=== PATIENT | female | born 1975 | race Caucasian/White ===

== ENCOUNTER 2021-10-16 04:48 | Inpatient (IN) | payer MEDICAID ==
[2021-10-16] VITALS (15 sets, daily range): BP systolic 122–168; BP diastolic 96–139; PULSE 84–102; TEMP 97.5–98
[~2021-10-16] VITALS: Ht 165.1 cm; Wt 62.7 kg
--- NOTE | 2021-10-16 07:10 | NUR ---
PT FROM [facility], ADMITTED TO ROOM 310, BROUGHT IN BY CONTRACTS OFFICER WITH, ADMITTED DUE TO COMPLAINS OF CHEST PAIN AND UPPER ABDOMINAL PRESSURE. PATIENT ALERT AND ORIENT X4,I.V CDI, VSS BP ELEVATED DOCTOR NOTIFIED.NURSE ORIENTED PT TO LOCATION ROOM AND CALL LIGHT.CALL LIGHT WITHIN REACH.
[2021-10-16] MEDS ORDERED: ADVIL200 MG PO (09:29)
[2021-10-16 12:01] LABS: BASO % 0.4 % (0.0-2.0); EOS # 0.1 K/mm3 (0.0-0.7); GRAN # 6.5 K/mm3 (1.4-6.5); GRAN % 66.3 % (42.2-75.2); LYMPH # 2.4 K/mm3 (1.2-3.4); LYMPH % 24.9 % (20.0-51.0); MEAN CELL VOLUME 94 fl (80.0-100.0); MEAN CORPUSCULAR HEMOGLOBIN 31 pg (27-31); MEAN CORPUSCULAR HGB CONC 33 g/dl (33.0-37.0); MEAN PLATELET VOLUME 10.5 fl (7.4-10.4); MONO # 0.7 K/mm3 (0.1-0.6); MONO % 7.1 % (1.7-9.3); PLATELET COUNT 249 K/mm3 (130-400); RED BLOOD COUNT 4.58 M/mm3 (4.10-5.30); REDCELL DISTRIBUTION WIDTH-CV 14.1 % (11.5-14.5)
[2021-10-16 12:21] LABS: INR 1.3 (0.8-3.0); PROTHROMBIN TIME 15.1 SECONDS (9.7-12.8)
[2021-10-16 12:28] LABS: ALBUMIN 3.3 gm/dL (3.5-5.0); CALCIUM 8.6 mg/dL (8.4-10.2); CHOLESTEROL RISK RATIO 4.6; CREATININE, serum 0.82 mg/dL (0.57-1.11); MAGNESIUM 2.1 mg/dL (1.6-2.6); POTASSIUM 4.2 mmol/L (3.5-4.5); TOTAL PROTEIN 6.2 gm/dL (6.2-8.1)
[2021-10-16 12:35] LABS: TROPONIN-I 0.029 ng/mL (0.00-0.033)
[2021-10-16 12:45] LABS: PARTIAL THROMBOPLASTIN TIME 153.7 SECONDS (26.0-37.0)
--- NOTE | 2021-10-16 12:53 | NUR ---
[employer] Middleware Architect met with patient to discuss discharge planning. Patient lives in [place] with her two children, ages 8 and 5. Patient states they are with their build and release manager at this time. Patient does not have a primary care physician at this time and obtains her medications from [facility] in [place]. Patient is a digital marketing project manager for [employer] Patient does use any DME and is independent with [employer]. Patient plans to return home at time of discharge. Patient does not have Advance Directives but stated she may consider completing them at a later time. Patient is not and her children are under 18. Patient reports her parents are and her brother, Carlos would be her legal next of kin. Patient states Carlos lives in [facility] and his phone number is [phone]. Patient advised that Carlos is currently in the [place] and is in [place] visiting. Discharge Plan: Home
--- NOTE | 2021-10-16 12:59 | NUR ---
Initial visit; Patient just returned from a 'Procedure,' Raw Shellfish Preparer offered God's blessings and will keep Judie in her prayers. Raw Shellfish Preparer will follow up when patient is more alert.
--- NOTE | 2021-10-16 18:11 | NUR ---
See merge for all medication, assessment, intervention, and vital sign times.
--- NOTE | 2021-10-16 18:12 | NUR ---
Patient down in a procedure. A&Ox4. VSS, BP elevated, doctors aware. NPO for the shift and tolerated well. Denies pain, reports minimal abdominal discomfort. Waiting for patient to come back to the floor
--- NOTE | 2021-10-16 18:35 | NUR ---
Patient to room 310 from heart cath. A&Ox4. VSS. IV CDI, fluids by gravity. Nurse oriented the patient to location, room and call light. Post op VS monitored. Right radial band, CDI, no noted hematoma, site soft and non tender. Nurse assisted the patient with 1 assist to the bathroom. Dinner order placed. No further needs expressed. Call light within reach. Bed alarm on
[2021-10-16 18:45] LABS: TRICYCLIC ANTIDEPRESS URINE NEGATIVE
--- NOTE | 2021-10-17 00:38 | NUR ---
NO HEMATOMA NOTED, SENSATION PRESENT, PULSE ADEQUATE
--- NOTE | 2021-10-17 00:40 | NUR ---
NO HEMATOMA NOTED REMOVED 2ML, SENSATION PRESENT NO CHANGES NOTED
--- NOTE | 2021-10-17 00:42 | NUR ---
NO CHANGES NOTED, SENSATION PRESENT PULSE ADEQUATE NO HEMATOMA NOTED
--- NOTE | 2021-10-17 00:43 | NUR ---
NO HEMATOMA NOTED, SENSATION PRESENT PULSE ADEQUATE WILL CONTINUE TO MONITOR
--- NOTE | 2021-10-17 00:45 | NUR ---
NO CHANGES NOTED, SENSATION PRESENT NO HEMATOMA NOTED PULSE ADEQUATE.
--- NOTE | 2021-10-17 00:47 | NUR ---
PATIENT CONTINUES TO PROGRESS NO HEMATOMA NOTED NO CHANGES,PULSE AND SENSATION ADEQUATE.
[2021-10-17 00:56] VITALS: BP 109/93; PULSE 82; TEMP 98.9
--- NOTE | 2021-10-17 02:10 | NUR ---
TR BAND INTACT NO HEMATOMA NOTED AT SHIFT CHANGE AROUND 0815 BEGIN TO REMOVE AIR FROM BAND PATIENT TOLERATED WELL NO HEMATOMA THROUGHOUT SHIFT. SENSATION PRESENT REMOVED TR BAND THIS MORNING AROUND 0200. SPLINT IN PLACE TO REINFORCE LIMITATION ON USE. NO BLEEDING NOTED SENSATION PRESENT. PATIENT C/O CONSTIPATION THIS MORNING OFFERED PRUNE JUICE REFUSED AT THIS TIME. NO CHEST PAIN OR DISCOMFORT TOLERATING AMBULATION TO BATHROOM WELL. WILL CONTINUE TO MONITOR SITE POST CARDIAC CATH.
--- NOTE | 2021-10-17 02:16 | NUR ---
NO HEMATOMA NOTED, NO CHANGES, SENSATION, AND PULSE ADEQUATE.
--- NOTE | 2021-10-17 02:18 | NUR ---
NO CHANGES NOTED, NO HEMATOMA NOTED, SENSATION AND PULSE ADEQUATE.
--- NOTE | 2021-10-17 02:20 | NUR ---
NO CHANGES NOTED TR BAND ALMOST DEFLATED, NO HEMATOMA, SENSATION PRESENT, AND PULSE ADEQUATE. WILL CONTINUE TO MONITOR
--- NOTE | 2021-10-17 02:23 | NUR ---
TR DEFLATED NO HEMATOMA NOTED PATIENT TOLERATING WELL, SPLINT IN PLACE TO REDIRECT ACTIVITY LIMITATION THROUGHOUT THE NIGHT. NO PAIN NOTED WILL CONTINUE TO MONITOR.
[2021-10-17 04:50] VITALS: BP 139/99; PULSE 80; TEMP 97.8
[2021-10-17 04:57] VITALS: BP 139/99; PULSE 80; TEMP 98.9
--- NOTE | 2021-10-17 04:58 | NUR ---
NO HEMATOMA NOTED, SENSATION PRESENT, PULSE ADEQUATE, AND DENIES ANY NUMBNESS AND PAIN.
--- NOTE | 2021-10-17 05:22 | NUR ---
PATIENT C/O CONSTIPATION AND UPSET STOMACH THIS MORNING PROVIDED PRUNE JUICE AND MAALOX. PATIENT ALSO STATED THAT SHE FELT ANXIOUS AND REQUESTING PRN. PATIENT AMBULATING TO BATHROOM STEADY GAIT. BAND REMOVED THIS AM. WILL CONTINUE TO MONITOR FOR ANY CHANGES.
[2021-10-17 07:54] VITALS: BP 142/104; PULSE 88; TEMP 968.1
[2021-10-17] MEDS ORDERED: LIPITOR20 MG PO (09:35)
[2021-10-17] MEDS ORDERED: ASPIRIN E.C. 8181 MG PO (09:36)
[2021-10-17] MEDS ORDERED: ALTACE 5MG5 MG PO (09:37)
[2021-10-17] MEDS ORDERED: COREG 25MG25 MG/TAB PO (09:37)
[2021-10-17] MEDS ORDERED: LASIX 40MG TABL40 MG PO (09:38)
[2021-10-17] MEDS ORDERED: NITROSTAT0.4 MG/TAB SL (09:38)
--- NOTE | 2021-10-17 10:29 | NUR ---
Follow-up visit; Patient states she is doing ok this morning and thanked Tower Cleaner for looking in on her and offering God's blessings.
[2021-10-17] MEDS ORDERED: K-DUR20 MEQ PO (10:34)
[2021-10-17 12:00] VITALS: BP 153/107; PULSE 88; TEMP 98.1
--- NOTE | 2021-10-17 15:41 | NUR ---
IV REMOVED, TELE DISCONTINUED, DISCHARGED SUMMARY GIVED AND EXPLAINED TO THE PT, VERBALIZE UNDERSTANDING, PT WALKED OUT OF THE UNIT IN A WHEEL CHAIR BY THE NURSE, PT ACCOMPANIED HOME BY A FRIEND.
== END 2021-10-17 15:15 | disposition home or self-care (01) | DRG 280 ==
LOC: MEDICAL 04:48
PROVIDERS: ADMIT Internal Medicine
PROC: 4A023N7 Measurement of Cardiac Sampling and Pressure, Left Heart, Percutaneous Approach (ICD-10-PCS; principal; 2021-10-16)
PROC: B2111ZZ Fluoroscopy of Multiple Coronary Arteries using Low Osmolar Contrast (ICD-10-PCS; 2021-10-16)
DX: I11.0 Hypertensive heart disease with heart failure (principal); I50.23 Acute on chronic systolic (congestive) heart failure; I21.A1 Myocardial infarction type 2; I16.1 Hypertensive emergency; F41.9 Anxiety disorder, unspecified; F17.210 Nicotine dependence, cigarettes, uncomplicated; F15.90 Other stimulant use, unspecified, uncomplicated; I42.8 Other cardiomyopathies; K59.00 Constipation, unspecified; I20.0 Unstable angina; Z72.89 Other problems related to lifestyle
CPT/HCPCS: 99223-AI; 99239; C1769; J0360; J1644; J3010; J7030